=== PATIENT | female | born 1995 | race Caucasian/White ===

== ENCOUNTER 2022-04-13 06:03 | Emergency (ER) | payer SELFPAY ==
[~2022-04-13] VITALS: Ht 13 cm; Wt 120.0 kg
--- NOTE | 2022-04-13 06:21 | ED GU-Female ---
General Chief Complaint: - Reproductive Stated Complaint: LOWER BACK TO FRONT PAIN INTO HIPS History of Present Illness Date Seen by Provider: April 13, 2022 Time Seen by Provider: 06:21 Initial Comments 26-year-old female with no significant PMH, is here with complaints of bilateral flank pain radiating down to the front of her groin which has been going on for the past 4 days. Pain is more on movement. Denies recent injury, falls, trauma, dysuria, vaginal discharge, vomiting, diarrhea, fever. Patient's last meal was yesterday at lunch. Patient does have associated nausea. Allergies and Home Medications Allergies Coded Allergies: No Known Drug Allergies (Unverified , 04/13/22) Patient Home Medication List Home Medication List Reviewed: Yes Review of Systems Review of Systems Constitutional: no symptoms reported EENTM: no symptoms reported Respiratory: no symptoms reported Cardiovascular: no symptoms reported Gastrointestinal: nausea Genitourinary: flank pain Musculoskeletal: no symptoms reported Skin: no symptoms reported Psychiatric/Neurological: No Symptoms Reported Endocrine: No Symptoms Reported Hematologic/Lymphatic: No Symptoms Reported Past Sphotcx-Nonsff-Kigiia Hx Patient Social History Tobacco Use?: Yes Tobacco type used: Cigarettes Use of E-Cig and/or Vaping dev: No Substance use?: Yes Substance type: Marijuana Substance frequency: Once in a while Alcohol Use?: No Pt feels they are or have been: No Immunizations Up To Date Influenza Vaccine Up-to-Date: No; Not Current First/Initial COVID19 Vaccinat: 2020 COVID19 Vaccine [employer] Supervisor: [email or web address] Physical Exam Vital Signs Vital Signs - First Documented 04/13/22 06:13 Temp 36.8 Pulse 72 Resp 18 B/P (MAP) 142/97 (112) Capillary Refill : Height, Weight, BMI Height: '" Weight: lbs. oz. kg; BMI Method: General Appearance: no apparent distress HEENT: PERRL/EOMI Neck: full range of motion Cardiovascular: regular rate, rhythm, no edema Respiratory: chest non-tender, lungs clear, normal breath sounds Gastrointestinal: normal bowel sounds, soft, tenderness (mild tenderness in suprapubic area) Back: normal inspection, no vertebral tenderness, CVA tenderness (R), CVA tenderness (L) Extremities: normal range of motion, non-tender, normal inspection Neurologic/Psychiatric: no motor/sensory deficits, alert, normal mood/affect, oriented x 3 Skin: normal color Progress/Results/Core Measures Suspected Sepsis SIRS Temperature: Pulse: Respiratory Rate: Laboratory Tests 04/13/22 06:30: White Blood Count 8.5 Blood Pressure / Mean: Laboratory Tests 04/13/22 06:30: Creatinine 0.85, Platelet Count 280, Total Bilirubin 0.5 Results/Orders Lab Results Laboratory Tests Test 04/13/22 06:30 04/13/22 07:23 Range/Units White Blood Count 8.5 4.3-11.0 10^3/uL Red Blood Count 5.82 H 3.80-5.11 10^6/uL Hemoglobin 14.3 11.5-16.0 g/dL Hematocrit 45 35-52 % Mean Corpuscular Volume 77 L 80-99 fL Mean Corpuscular Hemoglobin 25 25-34 pg Mean Corpuscular Hemoglobin Concent 32 32-36 g/dL Red Cell Distribution Width 14.2 10.0-14.5 % Platelet Count 280 130-400 10^3/uL Mean Platelet Volume 9.6 9.0-12.2 fL Immature Granulocyte % (Auto) 0 % Neutrophils (%) (Auto) 61 42-75 % Lymphocytes (%) (Auto) 28 12-44 % Monocytes (%) (Auto) 6 0-12 % Eosinophils (%) (Auto) 5 0-10 % Basophils (%) (Auto) 1 0-10 % Neutrophils # (Auto) 5.2 1.8-7.8 10^3/uL Lymphocytes # (Auto) 2.4 1.0-4.0 10^3/uL Monocytes # (Auto) 0.5 0.0-1.0 10^3/uL Eosinophils # (Auto) 0.4 H 0.0-0.3 10^3/uL Basophils # (Auto) 0.1 0.0-0.1 10^3/uL Immature Granulocyte # (Auto) 0.0 0.0-0.1 10^3/uL Sodium Level 140 135-145 MMOL/L Potassium Level 4.2 3.6-5.0 MMOL/L Chloride Level 106 98-107 MMOL/L Carbon Dioxide Level 20 L 21-32 MMOL/L Anion Gap 14 5-14 MMOL/L Blood Urea Nitrogen 14 7-18 MG/DL Creatinine 0.85 0.60-1.30 MG/DL Estimat Glomerular Filtration Rate 96 BUN/Creatinine Ratio 16 Glucose Level 100 70-105 MG/DL Calcium Level 9.3 8.5-10.1 MG/DL Corrected Calcium 9.1 8.5-10.1 MG/DL Total Bilirubin 0.5 0.1-1.0 MG/DL Aspartate Amino Transf (AST/SGOT) 19 5-34 U/L Alanine Aminotransferase (ALT/SGPT) 26 0-55 U/L Alkaline Phosphatase 70 40-136 U/L Total Protein 7.4 6.4-8.2 GM/DL Albumin 4.2 3.2-4.5 GM/DL Lipase 29 8-78 U/L Urine Color YELLOW Urine Clarity CLEAR Urine pH 5.5 5-9 Urine Specific [place] 1.025 H 1.016-1.022 Urine Protein NEGATIVE NEGATIVE Urine Glucose (UA) NEGATIVE NEGATIVE Urine Ketones NEGATIVE NEGATIVE Urine Nitrite NEGATIVE NEGATIVE Urine Bilirubin NEGATIVE NEGATIVE Urine Urobilinogen 0.2 < = 1.0 MG/DL Urine Leukocyte Esterase TRACE H NEGATIVE Urine RBC (Auto) NEGATIVE NEGATIVE Urine RBC RARE /HPF Urine WBC 2-5 /HPF Urine Squamous Epithelial Cells 2-5 /HPF Urine Crystals NONE /LPF Urine Bacteria FEW H /HPF Urine Casts NONE /LPF Urine Mucus NEGATIVE /LPF Urine Culture Indicated YES Urine Opiates Screen NEGATIVE NEGATIVE Urine Oxycodone Screen NEGATIVE NEGATIVE Urine Methadone Screen NEGATIVE NEGATIVE Urine Propoxyphene Screen NEGATIVE NEGATIVE Urine Barbiturates Screen NEGATIVE NEGATIVE Ur Tricyclic Antidepressants Screen NEGATIVE NEGATIVE Urine Phencyclidine Screen NEGATIVE NEGATIVE Urine Amphetamines Screen NEGATIVE NEGATIVE Urine Methamphetamines Screen NEGATIVE NEGATIVE Urine Benzodiazepines Screen NEGATIVE NEGATIVE Urine Cocaine Screen NEGATIVE NEGATIVE Urine Cannabinoids Screen POSITIVE H NEGATIVE My Orders Orders - TRENA ESTRADA MD Ct Abd/Pelvis Wo(Kidney Stone) (04/13/22 06:31) Ed Iv/Invasive Line Start (04/13/22 06:31) Ua Culture If Indicated (04/13/22 06:31) Ketorolac Injection (Toradol Injection) (04/13/22 06:45) Cbc With Automated Diff (04/13/22 06:31) Comprehensive Metabolic Panel (04/13/22 06:31) Lipase (04/13/22 06:32) Drug Screen Stat (Urine) (04/13/22 07:22) Morphine Injection (Morphine Injection (04/13/22 07:23) Urine Culture (04/13/22 07:23) Medications Given in ED Current Medications Medications Dose Ordered Sig/Ryan Route Start Time Stop Time Status Last Admin Dose Admin Ketorolac Tromethamine 15 mg ONCE ONCE IV 04/13/22 06:45 04/13/22 06:46 DC 04/13/22 06:44 15 MG Vital Signs/I&O 04/13/22 06:13 Temp 36.8 Pulse 72 Resp 18 B/P (MAP) 142/97 (112) Capillary Refill : Progress Note : Progress Note 1. FLANK PAIN: MILD UTI and muscle strain - CT ABD & PELVIS - CBC/ CMP - UA - NS IVF - Toradol 15mg iv , then Morphine 2mg iv once - Nitrofurantoin 100mg BID for 7 days - Advised adequate water intake, Ibuprofen prn pain and lidocaine patches - Follow up with PCP - the patient was seen in the ED, and treated appropriately to presentation at a specific point in time. Patient is informed that there is a possibility that disease and illness can evolve and change in acuity rapidly or slowly after patient is discharged from the ER. Precautionary advice given to the patient for immediate return to ER if symptoms worsen or do not resolve, and to seek emergency care sooner rather than later. Pt also advised on the importance of PCP follow up and compliance with management and follow up plan with PCP and/or specialist, as this is part of the management plan. Pt verbally expressed und erstanding. Diagnostic Imaging Diagonstic Imaging: CT Plain Films/CT/US/NM/MRI: abdomen Comments [facility] [place] NAME: LUIS DANIEL ORNELAS [facility] REC#: [id number] PT STATUS: REG ER : 1995 PHYSICIAN: TRENA ESTRADA MD ADMIT DATE: 04/13/22/ER Draft Date of Exam:04/13/22 CT ABD/PELVIS WO(KIDNEY STONE) EXAMINATION: CT abdomen and pelvis without contrast. TECHNIQUE: Multiple contiguous axial images were obtained through the abdomen and pelvis without the use of intravenous contrast. All CT scans use one or more of the following dose optimizing techniques: automated exposure control, MA and/or KvP adjustment based on patient size and exam type or iterative reconstruction. HISTORY: Flank pain COMPARISON: None available. FINDINGS: Limited views of the lower thorax are unremarkable. The liver is normal without focal lesion. There is no biliary ductal dilation. Gallbladder is normal. Pancreas is normal. Spleen is normal. Adrenal glands are normal. The kidneys are normal. There is no hydronephrosis. Urinary bladder is normal. There are no renal or ureteral stones. There are phleboliths in the pelvis. Bowel is normal in caliber without obstruction or inflammation. The appendix is normal. No free fluid or air. No abdominal or pelvic lymphadenopathy. Aorta is normal in caliber without aneurysm. There are no suspicious osseus lesions. IMPRESSION: 1. No acute abnormality in the abdomen or pelvis, no renal or ureteral stones. Dictated on workstation # [id number] Dict: 04/13/22804 Trans: 04/13/22811 [facility] [phone] Interpreted by: VALERY HAWK MD Electronically signed by: Departure Impression Primary Impression: Urinary tract infection Qualified Codes: N30.00 - Acute cystitis without hematuria Additional Impression: Muscle strain Disposition: 01 HOME, SELF-CARE Condition: Stable Departure-Patient Inst. Referrals: [facility] (PCP/Family) Primary Care Physician Patient Instructions: Urinary Tract Infection, Adult (DC), Muscle Strain (DC) Add. Discharge Instructions: - Nitrofurantoin 100mg BID for 7 days - Advised adequate water intake, Ibuprofen prn pain and lidocaine patches - Follow up with PCP All discharge instructions reviewed with patient and/or family. Voiced understanding. Scripts Nitrofurantoin Macrocrystal (Nitrofurantoin) 100 Mg Capsule 100 MG PO BID for 7 Days, #14 CAP Prov: TRENA ESTRADA MD 04/13/22 Work/School Note: Work Release Form Date Seen in the Emergency Department: April 13, 2022 Return to Work: Apr 14, 2022 Restrictions: No Restrictions TRENA ESTRADA MD April 13, 2022 06:21
[2022-04-13 06:41] LABS: BASOPHILS # (AUTO) 0.1 10^3/uL (0.0-0.1); BASOPHILS % (AUTO) 1 % (0-10); EOSINOPHILS # (AUTO) 0.4 10^3/uL (0.0-0.3); EOSINOPHILS % (AUTO) 5 % (0-10); HEMATOCRIT 45 % (35-52); HEMOGLOBIN 14.3 g/dL (11.5-16.0); LYMPHOCYTES # (AUTO) 2.4 10^3/uL (1.0-4.0); LYMPHOCYTES % (AUTO) 28 % (12-44); MEAN CORPUSCULAR HEMOGLOBIN 25 pg (25-34); MEAN CORPUSCULAR HGB CONC 32 g/dL (32-36); MEAN CORPUSCULAR VOLUME 77 fL (80-99); MEAN PLATELET VOLUME 9.6 fL (9.0-12.2); MONOCYTES # (AUTO) 0.5 10^3/uL (0.0-1.0); MONOCYTES % (AUTO) 6 % (0-12); NEUTROPHILS # (AUTO) 5.2 10^3/uL (1.8-7.8); NEUTROPHILS % (AUTO) 61 % (42-75); PLATELET COUNT 280 10^3/uL (130-400); WHITE BLOOD COUNT 8.5 10^3/uL (4.3-11.0)
[2022-04-13] MEDS ORDERED: KETOROLAC 30 MG/ML VIAL IV ONE (06:45)
[2022-04-13 06:59] LABS: ALBUMIN 4.2 GM/DL (3.2-4.5); POTASSIUM 4.2 MMOL/L (3.6-5.0)
[2022-04-13 07:01] LABS: CALCIUM 9.3 MG/DL (8.5-10.1)
[2022-04-13 07:02] LABS: TOTAL PROTEIN 7.4 GM/DL (6.4-8.2)
[2022-04-13 07:04] LABS: BILIRUBIN,TOTAL 0.5 MG/DL (0.1-1.0)
[2022-04-13 07:05] LABS: CREATININE SERUM 0.85 MG/DL (0.60-1.30)
[2022-04-13] MEDS ORDERED: morphine INJ 10 MG/ML 1ML (SYR OR VIAL) IVP STA (07:23)
[2022-04-13 07:36] LABS: BILIRUBIN,URINE NEGATIVE (NEGATIVE); CLARITY,URINE CLEAR; COLOR,URINE YELLOW; GLUCOSE, URINE (UA) NEGATIVE (NEGATIVE); KETONES,URINE NEGATIVE (NEGATIVE); LEUKOCYTE ESTERASE ,URINE TRACE (NEGATIVE); NITRITE,URINE NEGATIVE (NEGATIVE); PH,URINE 5.5 (5-9); PROTEIN,URINE NEGATIVE (NEGATIVE)
[2022-04-13 07:44] LABS: BACTERIA,URINE FEW /HPF; RBC,URINE RARE /HPF
[2022-04-13 07:49] LABS: AMPHETAMINE SCREEN, URINE NEGATIVE (NEGATIVE); BARBITURATE SCREEN URINE NEGATIVE (NEGATIVE); BENZODIAZEPINES SCREEN URINE NEGATIVE (NEGATIVE); CANNABINOID SCREEN, URINE POSITIVE (NEGATIVE); COCAINE SCREEN URINE NEGATIVE (NEGATIVE); METHADONE STAT NEGATIVE (NEGATIVE); OPIATE SCREEN URINE NEGATIVE (NEGATIVE); OXYCODONE STAT NEGATIVE (NEGATIVE); PROPOXYPHENE STAT NEGATIVE (NEGATIVE); TRICYCLIC ANTIDEPRESSANTS SCRE NEGATIVE (NEGATIVE)
--- NOTE | 2022-04-13 08:13 | Diagnostic Imaging Report ---
EXAMINATION: CT abdomen and pelvis without contrast. TECHNIQUE: Multiple contiguous axial images were obtained through the abdomen and pelvis without the use of intravenous contrast. All CT scans use one or more of the following dose optimizing techniques: automated exposure control, MA and/or KvP adjustment based on patient size and exam type or iterative reconstruction. HISTORY: Flank pain COMPARISON: None available. FINDINGS: Limited views of the lower thorax are unremarkable. The liver is normal without focal lesion. There is no biliary ductal dilation. Gallbladder is normal. Pancreas is normal. Spleen is normal. Adrenal glands are normal. The kidneys are normal. There is no hydronephrosis. Urinary bladder is normal. There are no renal or ureteral stones. There are phleboliths in the pelvis. Bowel is normal in caliber without obstruction or inflammation. The appendix is normal. No free fluid or air. No abdominal or pelvic lymphadenopathy. Aorta is normal in caliber without aneurysm. There are no suspicious osseus lesions. IMPRESSION: 1. No acute abnormality in the abdomen or pelvis, no renal or ureteral stones. Dictated by: Dictated on workstation # [id number]
[2022-04-13] MEDS ORDERED: NITR100C PO (08:25)
[2022-04-13 08:36] VITALS: BP 122/75
== END 2022-04-13 08:36 | disposition home or self-care (01) ==
LOC: ER 06:09
DX: S39.011A Strain of muscle, fascia and tendon of abdomen, initial encounter (principal); N30.00 Acute cystitis without hematuria; F17.210 Nicotine dependence, cigarettes, uncomplicated; X58.XXXA Exposure to other specified factors, initial encounter
CPT/HCPCS: 36415; 74176; 80053; 80306; 81000; 83690; 85025; 87088

== ENCOUNTER 2022-10-18 07:57 | Emergency (ER) | payer SELFPAY ==
[~2022-10-18] VITALS: Ht 172 cm; Wt 117.0 kg
[~2022-10-18 07:57] MED LIST: NITR100C PO
[2022-10-18 08:06] VITALS: BP 147/106
[2022-10-18] MEDS ORDERED: CYCLOBENZAPRINE 10 MG (FLEXERIL) TAB PO STA (08:27)
[2022-10-18] MEDS ORDERED: KETOROLAC 30 MG/ML VIAL IM ONE (08:30)
[2022-10-18] MEDS ORDERED: GABA-486 PO (08:33)
[2022-10-18] MEDS ORDERED: PANT20TA18 PO (08:33)
[2022-10-18] MEDS ORDERED: IBUP-1780 PO (08:33)
[2022-10-18] MEDS ORDERED: LIDO700A45 TP (08:33)
[2022-10-18] MEDS ORDERED: CYCL10TA25 PO (08:33)
--- NOTE | 2022-10-18 08:33 | ED Lower Extremity ---
General Chief Complaint: Lower Extremity Stated Complaint: SCIATIC PAIN Nursing Triage Note: RIGHT SIDED SCIATICA OFF AND ON FOR 6 MONTHS. Source: patient Exam Limitations: no limitations History of Present Illness Date Seen by Provider: Oct 18, 2022 Time Seen by Provider: 08:01 Initial Comments 27-year-old female with no pertinent past medical history coming in due to right flank pain radiating down her right leg. Been going on for roughly 6 months, and she states it feels similar to her previous sciatica. In the past she has been on Flexeril, gabapentin, NSAIDs. All helped very mildly. She is done a short course of steroids in the past as well. Has never seen an orthopedist over this. Is getting scheduled to follow-up with pain management here in town shortly. Denies any trauma ever associated with this. Denies any weakness, numbness, bowel issues, bladder issues, chest pain, shortness of breath, abdominal pain, nausea, vomiting, diarrhea, dysuria, or any other concerns. Allergies and Home Medications Allergies Coded Allergies: No Known Drug Allergies (Unverified , 04/13/22) Patient Home Medication List Home Medication List Reviewed: Yes Discontinued Medications Nitrofurantoin Macrocrystal (Nitrofurantoin) 100 Mg Capsule, 100 MG PO BID Discontinued Reason: No Longer Taking Prescribed by: TRENA ESTRADA MD on 04/13/22824 Last Action: Discontinued Review of Systems Constitutional: No fever EENTM: no symptoms reported Respiratory: no symptoms reported Cardiovascular: no symptoms reported Gastrointestinal: no symptoms reported Genitourinary: no symptoms reported Musculoskeletal: see HPI Skin: no symptoms reported Psychiatric/Neurological: No Symptoms Reported All Other Systems Reviewed Negative Unless Noted: Yes Past Kotrcwr-Ndtnrs-Hevgpi Hx Patient Social History Tobacco Use?: Yes Tobacco type used: Cigarettes Smoking Status: Current Everyday Smoker Substance use?: Yes Substance type: Marijuana Alcohol Use?: No Immunizations Up To Date First/Initial COVID19 Vaccinat: UNKNOWN COVID19 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 oz. kg; 39.00 BMI Method: General Appearance: WD/WN, no apparent distress HEENT: PERRL/EOMI, normal ENT inspection, pharynx normal Neck: non-tender, full range of motion, supple, normal inspection Cardiovascular: regular rate, rhythm, no edema, no murmur Respiratory: chest non-tender, lungs clear, normal breath sounds, no respiratory distress, no accessory muscle use Gastrointestinal: normal bowel sounds, non tender, soft; No distended, No gu arding, No rebound Back: normal inspection, no CVA tenderness, no vertebral tenderness, other (Paravertebral tenderness on the right, positive straight leg test on the right) Hips: bilateral hip non-tender, bilateral hip normal inspection, bilateral hip normal range of motion, bilateral hip no evidence of injury Reflexes: 2+ knee (R), 2+ knee (L) Neurologic/Tendon: normal sensation, normal motor functions, normal tendon functions Neurologic/Psychiatric: no motor/sensory deficits, alert, normal mood/affect, other (Antalgic gait, 5 out of 5 strength with knee extension, flexion, dorsiflexion and plantarflexion of the) Skin: normal color, warm/dry Lymphatic: no adenopathy Progress/Results/Core Measures Results/Orders Vital Signs/I&O 10/18/22 08:06 Temp 36.3 Pulse 77 Resp 16 B/P (MAP) 147/106 (120) Pulse Ox 97 O2 Delivery Room Air Blood Pressure Mean: 120 Progress Progress Note : Progress Note 27-year-old female with above history coming in due to right flank pain radiating down the right leg. ABCs were intact and vitals were stable on presentation. Physical exam is consistent with sciatica type pain. In the ab sence of trauma, we will forego imaging at this time. I will have her follow-up with orthopedics as an outpatient and recommend symptomatic management Departure Impression Primary Impression: Sciatica Qualified Codes: M54.31 - Sciatica, right side Disposition: 01 HOME, SELF-CARE Condition: Stable Departure-Patient Inst. Decision time for Depature: 08:31 Referrals: [facility] (PCP/Family) Primary Care Physician JUAN RAMON LARIOS MD Patient Instructions: Sciatica ED Add. Discharge Instructions: Take the Flexeril, gabapentin, ibuprofen and use the lidocaine patches liberally. Follow-up with Dr. Larios in [facility] who is a bone specialist. Scripts Gabapentin (Gabapentin) 100 Mg Capsule 300 MG PO Q8H for Neuropathic pain for 14 Days, #126 CAP Prov: CHADWICK KHAN MD 10/18/22 Lidocaine (Lidocaine 5% Patch) 5 % Adh..patch 1 EACH TP Q12H PRN for Neuropathic pain MDD 2 for 14 Days, #28 PATCH 2 patches max for 12 hours, then 12 hours patch-free period. Prov: CHADWICK KHAN MD 10/18/22 Pantoprazole Sodium (Pantoprazole Sodium) 20 Mg Tablet.dr 20 MG PO DAILY for 14 Days, #14 TAB Prov: CHADWICK KHAN MD 10/18/22 Ibuprofen (Ibuprofen) 800 Mg Tablet 800 MG PO Q8H PRN for PAIN for 7 Days, #21 TAB 0 Refills Prov: CHADWICK KHAN MD 10/18/22 Cyclobenzaprine HCl (Cyclobenzaprine HCl) 10 Mg Tablet 10 MG PO Q8H for 7 Days, #21 TAB Prov: CHADWICK KHAN MD 10/18/22 Work/School Note: Work Release Form Date Seen in the Emergency Department: Oct 18, 2022 Return to Work: Oct 20, 2022 Restrictions: No Restrictions CHADWICK KHAN MD Oct 18, 2022 08:33
== END 2022-10-18 08:42 | disposition home or self-care (01) ==
LOC: EDUNIT# 07:57 → ER 07:59
DX: M54.31 Sciatica, right side (principal); F17.210 Nicotine dependence, cigarettes, uncomplicated; Z28.310 Unvaccinated for COVID-19
CPT/HCPCS: 99284